=== PATIENT | female | born 1970 | race Caucasian/White ===

== ENCOUNTER → 2020-06-26 | Outpatient (CLI) | payer BC ==
--- NOTE | 2020-06-26 13:57 | Diagnostic Imaging Report ---
INDICATION: Right shoulder pain, fall 7 weeks ago. TIME OF EXAM: 1:42 PM 3 views of the right shoulder were obtained. Glenohumeral and acromioclavicular alignment are normal. Acromiohumeral space is normal. No fracture or dislocation is identified. IMPRESSION: No acute bony abnormality is detected. Dictated by: Dictated on workstation # [id number]
== END ==
LOC: RAD FS 13:24
PROVIDERS: ATTEND Nurse Practitioner
DX: M25.511 Pain in right shoulder (principal)
CPT/HCPCS: 73030

== ENCOUNTER → 2021-08-16 | Outpatient (CLI) | payer BC ==
--- NOTE | 2021-08-16 13:43 | Diagnostic Imaging Report ---
INDICATION: Right foot pain status post injury COMPARISON: None. FINDINGS: 3 radiographic views of the right foot were obtained. There is acute nondisplaced intra-articular fracture involving the 5th distal phalanx. No unexpected radiopaque foreign bodies are seen. Remainder of the right foot is unremarkable. IMPRESSION:. Acute fracture of the 5th distal phalanx. Dictated by: Dictated on workstation # [id number]
== END ==
LOC: LAB FS 13:23
PROVIDERS: ATTEND Nurse Practitioner
DX: S92.531A Displaced fracture of distal phalanx of right lesser toe(s), initial encounter for closed fracture (principal)
CPT/HCPCS: 73630

== ENCOUNTER → 2022-07-24 | Outpatient (CLI) | payer SELFPAY ==
--- NOTE | 2022-07-24 14:37 | Diagnostic Imaging Report ---
INDICATION: Family history of heart disease. TECHNIQUE: CT coronary calcium scoring evaluation performed with noncontrast images of the heart followed by calculation of cardiac score. COMPARISON: There is no prior study for comparison. FINDINGS: The raw data images demonstrate no overt mediastinal or hilar lesion. The thoracic aorta is not aneurysmal. The visualized portions of the lung aguilar are clear but the entirety of the lungs is not included on this study. No significant coronary calcification was visualized. Coronary artery calcium score was 0 in all territories. IMPRESSION: Coronary artery calcification score was 0 with no significant coronary artery calcifications. Dictated by: Dictated on workstation # [id number]
== END ==
LOC: RAD FS 09:33
PROVIDERS: ATTEND Nurse Practitioner
DX: Z82.49 Family history of ischemic heart disease and other diseases of the circulatory system (principal)
CPT/HCPCS: 75571